=== PATIENT | male | born 1970 | race Caucasian/White ===

== ENCOUNTER 2021-07-07 09:33 | Emergency (ER) | payer BC, OTHER ==
[2021-07-07 09:44] VITALS: BP 141/101; PULSE 97
[2021-07-07] MEDS ORDERED: Ibuprofen 600 MG Tab PO ONE (10:18)
== END 2021-07-07 11:57 | disposition home or self-care (01) ==
LOC: JD.ED 09:33
DX: S96.811A Strain of other specified muscles and tendons at ankle and foot level, right foot, initial encounter (principal); E11.9 Type 2 diabetes mellitus without complications; Z72.0 Tobacco use; Z88.1 Allergy status to other antibiotic agents; Z88.8 Allergy status to other drugs, medicaments and biological substances; W01.0XXA Fall on same level from slipping, tripping and stumbling without subsequent striking against object, initial encounter
CPT/HCPCS: 73610; 99283; A9270